=== PATIENT | female | born 1985 | race Caucasian/White ===

== ENCOUNTER 2016-04-29 06:34 | Day surgery (SDC) | payer OTHER ==
[~2016-04-29] VITALS: Ht 165.1 cm; Wt 86.1 kg
[~2016-04-29 06:34] MED LIST: HYDROCODON-ACE1 EAC7 PO; IBUPROFEN600 MG PO; IBUPROFEN800 MG PO; IRON325 M1 PO; IRON325 MG PO; NO MEDICATION; PRENATAL TABLE1 EAC3 PO; PRENATAL TABLE1 EACH PO
[2016-04-29 07:12] VITALS: BP 116/78
[2016-04-29] MEDS ORDERED: IBUPROFEN800 MG PO ×2 (09:03)
[2016-04-29 11:14] VITALS: BP 132/79
[2016-04-29 12:00] VITALS: BP 107/67
== END 2016-04-29 12:22 | disposition home or self-care (01) ==
LOC: SDC 06:34
DX: N83.291 Other ovarian cyst, right side (principal); Z30.2 Encounter for sterilization; Z86.69 Personal history of other diseases of the nervous system and sense organs; Z88.8 Allergy status to other drugs, medicaments and biological substances; Z83.3 Family history of diabetes mellitus; Z82.49 Family history of ischemic heart disease and other diseases of the circulatory system; Z81.1 Family history of alcohol abuse and dependence; Z81.8 Family history of other mental and behavioral disorders; Z83.49 Family history of other endocrine, nutritional and metabolic diseases
CPT/HCPCS: 88305; J0330; J1170; J1200; J1885; J2250; J2405; J3010

== ENCOUNTER 2016-05-05 10:55 | Emergency (ER) | payer OTHER ==
[~2016-05-05] VITALS: Ht 165.1 cm; Wt 82.5 kg
[2016-05-05 11:43] LABS: HEMATOCRIT 38.6 % (36.0-46.0); MCHC 33.4 G/DL (30.0-36.0); MCV 80.8 FL (83-99); MEAN PLAT.VOLUME 9.2 uM^3 (9.5-12.4); PLATELET COUNT 256 K/uL (156-360); RBC DIS.WIDTH-CV 14.6 % (11.8-14.6); RBC DIS.WIDTH-SD 42.8 % (39-53); RED BLOOD COUNT 4.78 M/uL (3.80-5.20); WHITE BLOOD COUNT 4.9 K/uL (4.1-10.2)
[2016-05-05 12:00] LABS: CHLORIDE 105 mEq/L (99-109); POTASSIUM 3.6 mEq/L (3.7-5.4); SODIUM 141 mEq/L (136-147)
[2016-05-05 12:02] LABS: GLUCOSE 80 mg/dL (70-99)
[2016-05-05 12:03] LABS: ANION GAP 11 MEQ/L (2-14)
[2016-05-05 12:04] LABS: TOTAL BILIRUBIN 0.4 mg/dL (0.0-1.0)
[2016-05-05 12:05] LABS: ALKALINE PHOSPHATASE 103 IU/L (3-129)
[2016-05-05 12:06] LABS: GFR ESTIMATE (CALCULATED) > 59 mL/min/
[2016-05-05 12:07] LABS: UREA NITROGEN (BUN) 15 mg/dL (9-23)
[2016-05-05 12:18] LABS: QUANTITATIVE HCG < 4.0 MIU/ML
[2016-05-05 13:19] LABS: ADD MIUA? YES; BILIRUBIN SMALL; BLOOD NEGATIVE; COLOR YELLOW ((YELLOW)); GLUCOSE (STRIP) NEGATIVE; KETONES TRACE; LEUKOCYTES SMALL; NITRITE NEGATIVE; PH, URINE 5.5 (5-8); PROTEIN (STRIP) 30; SPECIFIC GRAVITY 1.032 (1.000-1.030)
[2016-05-05 14:06] LABS: BACTERIA 1+; CASTS NONE SEEN /LPF; CRYSTALS NONE SEEN; EPITHELIAL CELLS 2+; MUCUS 1+; RED BLOOD CELLS 0-5 /HPF (0-5); UCUL ADDED? NO; WHITE BLOOD CELLS 0-5 /HPF (0-5)
[2016-05-05] MEDS ORDERED: AUGMENTIN875 MG PO (15:43)
[2016-05-05 15:49] VITALS: BP 119/70
== END 2016-05-05 15:50 | disposition home or self-care (01) ==
LOC: EME 10:55 → RME 10:55
DX: R10.30 Lower abdominal pain, unspecified (principal); Z98.890 Other specified postprocedural states
CPT/HCPCS: 74176; 80053; 81003; 84702; 85027; 99281; 99285; J0696; J1885; J7050